=== PATIENT | male | born 1965 | race Asian ===

== ENCOUNTER 2020-04-29 08:29 | Emergency (ER) | payer MEDICAID ==
[~2020-04-29] VITALS: Ht 167.6 cm; Wt 80.7 kg
--- NOTE | 2020-04-29 08:30 | NUR ---
Patient was called for triage, no answer, "...patient is in the bathroom." per ER registation staff Heather
--- NOTE | 2020-04-29 08:43 | NUR ---
Patient is still in the ER waiting room bathroom.
[2020-04-29] MEDS ORDERED: [UNRECOGNIZED DRUG - CODE] PO (08:54)
--- NOTE | 2020-04-29 08:57 | NUR ---
Dr. Sargent at bedside for MSE
[2020-04-29] MEDS ORDERED: ACETAMINOPHEN/CODEINE 300-30 MG TABLET PO ONE (09:00)
[2020-04-29] MEDS ORDERED: ACETAMINOPHEN/CODEINE 300-30 MG TABLET ONE (09:06)
--- NOTE | 2020-04-29 09:10 | NUR ---
Patient given written and verbal discharge instructions. Patient verbalizes understanding of instructions. Patient is ambulatory with steady gait. Refuses offer of retirement placement. Patient given list of available shelters in surrounding area. Patient declines to sign discharge papers and homless waiver form. Patient ambulating with steady gait. NAD noted
[2020-04-29 09:17] VITALS: BP 108/72
== END 2020-04-29 09:10 | disposition home or self-care (01) ==
LOC: ER 08:29
DX: R51 Headache (principal); Z59.0 Homelessness
CPT/HCPCS: A4663